=== PATIENT | female | born 1945 | race African-American/Black ===

== ENCOUNTER → 2019-04-08 | Outpatient (CLI) | payer MEDICARE, OTHER ==
--- NOTE | 2019-04-08 15:18 | RAD ---
NECK SOFT TISSUE History: Left neck mass. Comparison: None Technique: Sonographic examination of the neck soft tissues Findings: Prior right thyroidectomy. Enlarged heterogeneous left thyroid gland measures 7.9 x 4.2 x 5.6 cm. Multiple small cystic nodules throughout the left thyroid gland. Several nodules are mixed cystic and solid although less defined. Impression: 1. Enlarged heterogeneous left thyroid gland. Recommend comparison with prior imaging studies to evaluate stability of nodules. 2. Prior right thyroidectomy. Electronically signed by: Ortega Garcia DO (04/08/2019 3:15 PM) [id number]
== END | disposition home or self-care (01) ==
LOC: EDBD 13:29 → US 13:29
PROVIDERS: ATTEND Nurse Practitioner Adult Health
DX: E04.2 Nontoxic multinodular goiter (principal)
CPT/HCPCS: 76536

== ENCOUNTER → 2019-08-23 | Outpatient (CLI) | payer MEDICARE, OTHER ==
--- NOTE | 2019-08-23 09:29 | RAD ---
Examination: 1. Bilateral AP weightbearing knees. 2. [place] and lateral weightbearing views of both knees. INDICATION: Knee pain. FINDINGS: The AP weight bearing views of both knees show no valgus or varus deformity to the either knee is asymmetrically greater left knee degenerative changes with bulky osteophytes in the medial compartment and to a lesser extent lateral compartment and asymmetric left medial knee joint space narrowing. The AP weightbearing view of the right knee is essentially unremarkable. The weightbearing lateral and sunrise views of the right knee show mild cortical irregularity on the medial patella facet. No fracture or malalignment. No joint effusion or loose body. The weightbearing and sunrise views of the left knee show osteophytic spurring most conspicuous in the medial compartment on the medial femoral condyle and posterior weightbearing surface of the medial tibial plateau but also osteophytic spurring at the superior patellar pole. No joint effusion or loose body. IMPRESSION: 1. In the right knee, there is mild patellofemoral compartment degenerative change most conspicuous medially. 2. In the left knee, there is tricompartmental degenerative change most conspicuous in the medial compartment. 3. No evidence of a fracture or malalignment in either knee on the available views. Electronically signed by: Kendra Ridley MD (08/23/2019 9:26 AM) [id number]
== END ==
LOC: DXRAD 08:21
PROVIDERS: ATTEND Orthopaedic Surgery Sports Medicine
DX: M17.0 Bilateral primary osteoarthritis of knee (principal)
CPT/HCPCS: 73560; 73565